=== PATIENT | female | born 1960 | race Caucasian/White ===

== ENCOUNTER 2020-12-10 08:00 | Emergency (ER) | payer BC ==
[2020-12-10 08:06] VITALS: TEMP 97.8
[2020-12-10] MEDS ORDERED: KETOROLAC 15 MG/ML 1 ML VIAL IVP STA (08:15)
[2020-12-10] MEDS ORDERED: ONDANSETRON 4 MG/2 ML VIAL IVP STA (08:15)
[2020-12-10] MEDS ORDERED: SODIUM CHLORIDE 0.9% 500 ML 500 ML IV STA (08:15)
--- NOTE | 2020-12-10 08:20 | ED ---
Abdominal Pain HPI - General Chief Complaint: Abdominal Pain Stated Complaint: LLQ Pain Time Seen by Provider: 12/10/20 08:08 Source: patient, RN notes reviewed Mode of arrival: ambulatory Limitations: no limitations - History of Present Illness Initial Comments: Patient is a 60-year-old female presented to the ED for left sided flank pain that started last night. Patient states that she was woken up in the middle the night feeling like she had a go to the bathroom, but was going the bathroom got no relief. Patient states she has generalized left sided flank pain feeling like she has to go the bathroom or stomach subside. Patient reports increased volume in bowel movements " has gone 10 times" today with nausea at this time. Patient denies any other symptoms of fever or chills, headache, cough, congestion or vomiting. Patient also expresses known history of kidney stone but reports this pain is different than his normal pain associated with that. - Related Data Previous Rx's Medication Instructions Recorded Ketorolac [Toradol] 10 mg PO Q8HR #15 tab 12/10/20 Ondansetron Odt [Zofran Odt] 4 mg PO Q8HR PRN #10 tab 12/10/20 Tamsulosin [Flomax] 0.4 mg PO DAILY #7 cap 12/10/20 Allergies Allergy/AdvReac Type Severity Reaction Status Date / Time No Known Allergies Allergy Verified 12/10/20 08:06 Review of Systems ROS Statement: Those systems with pertinent positive or pertinent negative responses have been documented in the HPI. ROS Other: All systems not noted in ROS Statement are negative. Past Medical History Past Medical History: Diabetes Mellitus, Hypertension History of Any Multi-Drug Resistant Organisms: None Reported Past Surgical History: Cholecystectomy Additional Past Surgical History / Comment(s): Thyroid Past Psychological History: No Psychological Hx Reported Smoking Status: Never smoker Past Alcohol Use History: Occasional Past Drug Use History: None Reported General Exam Limitations: no limitations General appearance: alert, in no apparent distress Respiratory exam: Present: normal lung sounds bilaterally. Absent: respiratory distress, wheezes, rales, rhonchi, stridor Cardiovascular Exam: Present: regular rate, normal rhythm, normal heart sounds. Absent: systolic murmur, diastolic murmur, rubs, gallop, clicks GI/Abdominal exam: Present: soft, tenderness (Left flank), hyperactive bowel so unds. Absent: distended, guarding, rebound, rigid Back exam: Present: normal inspection Neurological exam: Present: alert, oriented X3 Skin exam: Present: warm, dry, intact, normal color. Absent: rash Course Vital Signs 12/10/20 08:03 Temperature 97.8 F Pulse Rate 83 Respiratory 20 Rate Blood Pressure 128/73 O2 Sat by Pulse 100 Oximetry Medical Decision Making - Medical Decision Making CT shows evidence of a 3.8 mm stone in the ureter. Patient's pain is greatly improved as reviewed no significant findings. Patient discharged in stable condition temperature discussed. - Lab Data Result diagrams: 12/10/20 08:28 12/10/20 08:28 Lab Results 12/10/20 12/10/20 12/10/20 Range/Units 08:28 08:28 08:28 WBC 7.1 (3.8-10.6) k/uL RBC 5.20 (3.80-5.40) m/uL Hgb 16.2 H (11.4-16.0) gm/dL Hct 49.6 H (34.0-46.0) % MCV 95.4 (80.0-100.0) fL MCH 31.1 (25.0-35.0) pg MCHC 32.6 (31.0-37.0) g/dL RDW 12.8 (11.5-15.5) % Plt Count 269 (150-450) k/uL MPV 7.9 Neutrophils % 85 % Lymphocytes % 12 % Monocytes % 2 % Eosinophils % 0 % Basophils % 0 % Neutrophils # 6.1 (1.3-7.7) k/uL Lymphocytes # 0.8 L (1.0-4.8) k/uL Monocytes # 0.1 (0-1.0) k/uL Eosinophils # 0.0 (0-0.7) k/uL Basophils # 0.0 (0-0.2) k/uL Sodium 139 (137-145) mmol/L Potassium 4.3 (3.5-5.1) mmol/L Chloride 106 (98-107) mmol/L Carbon Dioxide 23 (22-30) mmol/L Anion Gap 10 mmol/L BUN 20 H (7-17) mg/dL Creatinine 0.63 (0.52-1.04) mg/dL Est GFR (CKD-EPI)AfAm >90 (>60 ml/min/1.73 sqM) Est GFR (CKD-EPI)NonAf >90 (>60 ml/min/1.73 sqM) Glucose 228 H (74-99) mg/dL Calcium 9.5 (8.4-10.2) mg/dL Total Bilirubin 0.7 (0.2-1.3) mg/dL AST 28 (14-36) U/L ALT 27 (4-34) U/L Alkaline Phosphatase 52 (38-126) U/L Total Protein 7.2 (6.3-8.2) g/dL Albumin 4.2 (3.5-5.0) g/dL Lipase 264 (23-300) U/L Urine Color Yellow Urine Appearance Clear (Clear) Urine pH 5.0 (5.0-8.0) Ur Specific [place] 1.032 (1.001-1.035) Urine Protein Negative (Negative) Urine Glucose (UA) 4+ H (Negative) Urine Ketones 2+ H (Negative) Urine Blood Large H (Negative) Urine Nitrite Negative (Negative) Urine Bilirubin Negative (Negative) Urine Urobilinogen <2.0 (<2.0) mg/dL Ur Leukocyte Esterase Negative (Negative) Urine RBC >182 H (0-5) /hpf Urine WBC <1 (0-5) /hpf Ur Squamous Epith Cells 1 (0-4) /hpf Urine Yeast (Budding) Few H (None) /hpf Disposition Clinical Impression: Left ureteral calculus Disposition: HOME SELF-CARE Condition: Stable Instructions (If sedation given, give patient instructions): Kidney Stones (ED) Additional Instructions: Please return to the Emergency Department if symptoms worsen or any other concerns. Prescriptions: Tamsulosin [Flomax] 0.4 mg PO DAILY #7 cap Ketorolac [Toradol] 10 mg PO Q8HR #15 tab Ondansetron Odt [Zofran Odt] 4 mg PO Q8HR PRN #10 tab PRN Reason: Nausea Is patient prescribed a controlled substance at d/c from ED?: No Referrals: Min Valentine MD [Primary Care Provider] - 1-2 days Time of Disposition: 10:13
[2020-12-10 08:50] LABS: Basophils % (A) 0 %; Eosinophils % (A) 0 %; HCT 49.6 % (34.0-46.0); HGB 16.2 gm/dL (11.4-16.0); Lymphocytes # (A) 0.8 k/uL (1.0-4.8); Lymphocytes % (A) 12 %; MCH 31.1 pg (25.0-35.0); MCHC 32.6 g/dL (31.0-37.0); MCV 95.4 fL (80.0-100.0); Mean Platelet Volume 7.9; Monocytes # (A) 0.1 k/uL (0-1.0); Monocytes % (A) 2 %; Neutrophils # (A) 6.1 k/uL (1.3-7.7); Neutrophils % (A) 85 %; Platelet Count 269 k/uL (150-450); RDW 12.8 % (11.5-15.5); WBC 7.1 k/uL (3.8-10.6)
[2020-12-10 09:03] LABS: Appearance,Urine Clear (Clear); Bilirubin,Urine Negative (Negative); Blood,Urine Large (Negative); Budding Yeast,Urine Few /hpf; Color,Urine Yellow; Glucose,Urine (UA) 4+ (Negative); Leukocyte Esterase,Urine Negative (Negative); Nitrite,Urine Negative (Negative); Protein,Urine Negative (Negative); RBC,Urine >182 /hpf (0-5); Specific Gravity,Urine 1.032 (1.001-1.035); Squamous Epithelial Cell,Urine 1 /hpf (0-4); Urobilinogen,Urine <2.0 mg/dL (<2.0); WBC,Urine <1 /hpf (0-5)
[2020-12-10 09:22] LABS: ALT 27 U/L (4-34); AST 28 U/L (14-36); African American GFR (CKD) >90 (>60 ml/min/1.73 sqM); Albumin 4.2 g/dL (3.5-5.0); Alkaline Phosphatase 52 U/L (38-126); Anion Gap 10 mmol/L; Blood Urea Nitrogen 20 mg/dL (7-17); Calcium 9.5 mg/dL (8.4-10.2); Carbon Dioxide 23 mmol/L (22-30); Chloride 106 mmol/L (98-107); Glucose 228 mg/dL (74-99); Lipase 264 U/L (23-300); Non-African American GFR(CKD) >90 (>60 ml/min/1.73 sqM); Potassium 4.3 mmol/L (3.5-5.1); Sodium 139 mmol/L (137-145); Total Bilirubin 0.7 mg/dL (0.2-1.3); Total Protein 7.2 g/dL (6.3-8.2)
[2020-12-10 09:37] LABS: Ketones,Urine 2+ (Negative)
--- NOTE | 2020-12-10 10:11 | CT ---
EXAMINATION TYPE: CT abdomen pelvis w con DATE OF EXAM: 12/10/2020 COMPARISON: None HISTORY: Left lower quadrant pain, increased bowel movements. CT DLP: 904.3 mGycm CONTRAST: CT scan of the abdomen and pelvis is performed without Oral Contrast and with IV Contrast, patient in jected with 100 mL of Isovue 300. FINDINGS: LUNG BASES-: No visible nodule. No infiltrate. LIVER/GB: The gallbladder surgically absent. Mild fatty hepatic infiltration seen. No space occupy ing hepatic lesion. Biliary tree is of normal caliber. PANCREAS: No inflammation. No distinct mass. SPLEEN: No splenic enlargement. No lesion seen. ADRENALS: No nodule. No thickening. KIDNEYS/BLADDER: 3.8 mm calculus proximal left ureter resulting in mild left-sided hydronephrosis. No nobstructing calculus upper pole left kidney measures 6.7 mm. Right kidney is free of nephrolithiasis or hydronephrosis. No distinct renal mass. Urinary bladder grossly unremarkable. BOWEL: Normal appendix. Normal bowel caliber. No inflammation. GENITAL ORGANS: No gross abnormality. LYMPH NODES: No greater than 1cm abdominal or pelvic lymph nodes are appreciated. AORTA: No significant abnormality. OSSEOUS STRUCTURES: No significant abnormality is seen. OTHER: No significant additional abnormality is seen. IMPRESSION: 1. 3.8 mm calculus proximal left ureter resulting in mild left-sided hydronephrosis.
[2020-12-10] MEDS ORDERED: ACET/COD 300 MG/30 MG STARTER PACK 6 TAB BTL PO STA (10:12)
[2020-12-10 11:06] VITALS: BP 122/82; PULSE 79; RESP 16
== END 2020-12-10 11:07 | disposition home or self-care (01) ==
LOC: EC 08:00
DX: N13.2 Hydronephrosis with renal and ureteral calculous obstruction (principal); E11.9 Type 2 diabetes mellitus without complications; I10 Essential (primary) hypertension
CPT/HCPCS: 36415; 80053; 83690; 85025; 81001; 74177; 96374; 96375; 99284; J2405; J1885; Q9967

== ENCOUNTER 2020-12-13 02:05 | Inpatient (IN) | payer BC ==
[2020-12-13] MEDS ORDERED: ONDANSETRON 4 MG/2 ML VIAL IVP STA (03:15)
[2020-12-13] MEDS ORDERED: SODIUM CHLORIDE 0.9% 500 ML 500 ML IV STA (03:16)
[2020-12-13] MEDS ORDERED: SODIUM CHLORIDE 0.9% 1,000 ML IV ONE (03:16)
[2020-12-13] MEDS ORDERED: MORPHINE SULFATE 4 MG/ML SYRINGE IV STA (03:16)
[2020-12-13] MEDS ORDERED: SODIUM CHLORIDE 0.9% 1,000 ML IV STA ×2 (03:16)
[2020-12-13] MEDS ORDERED: HYDROmorphone 1 MG/ML 1 ML SYRINGE IVP PRN (03:19)
[2020-12-13] MEDS ORDERED: HYDROmorphone 1 MG/ML 1 ML SYRINGE IVP STA (03:19)
--- NOTE | 2020-12-13 03:20 | ED ---
Recheck HPI - General Chief Complaint: Abdominal Pain Stated Complaint: Kidney Stones Time Seen by Provider: 12/13/20 02:16 Source: patient Mode of arrival: ambulatory - Related Data Previous Rx's Medication Instructions Recorded Ketorolac [Toradol] 10 mg PO Q8HR #15 tab 12/10/20 Ondansetron Odt [Zofran Odt] 4 mg PO Q8HR PRN #10 tab 12/10/20 Tamsulosin [Flomax] 0.4 mg PO DAILY #7 cap 12/10/20 Allergies Allergy/AdvReac Type Severity Reaction Status Date / Time No Known Allergies Allergy Verified 12/13/20 02:11 Review of Systems ROS Statement: Those systems with pertinent positive or pertinent negative responses have been documented in the HPI. ROS Other: All systems not noted in ROS Statement are negative. Past Medical History Past Medical History: Diabetes Mellitus, Hypertension History of Any Multi-Drug Resistant Organisms: None Reported Past Surgical History: Cholecystectomy Additional Past Surgical History / Comment(s): Thyroid Past Psychological History: No Psychological Hx Reported Smoking Status: Never smoker Past Alcohol Use History: Occasional Past Drug Use History: None Reported Course Vital Signs 12/13/20 02:07 Temperature 97.8 F Pulse Rate 67 Respiratory 19 Rate Blood Pressure 101/56 O2 Sat by Pulse 95 Oximetry Disposition Clinical Impression: Left ureteral calculus, Kidney stone, Intractable pain Disposition: ADMITTED IP TO THIS HOSP Condition: Good Is patient prescribed a controlled substance at d/c from ED?: No Referrals: Nonstaff,Physician [Primary Care Provider] - 1-2 days
[2020-12-13 03:33] LABS: Basophils % (A) 0 %; Eosinophils # (A) 0.1 k/uL (0-0.7); Eosinophils % (A) 1 %; HCT 43.1 % (34.0-46.0); HGB 14.1 gm/dL (11.4-16.0); Lymphocytes # (A) 1.3 k/uL (1.0-4.8); Lymphocytes % (A) 19 %; MCHC 32.6 g/dL (31.0-37.0); MCV 94.8 fL (80.0-100.0); Mean Platelet Volume 7.8; Monocytes # (A) 0.6 k/uL (0-1.0); Monocytes % (A) 8 %; Neutrophils # (A) 4.9 k/uL (1.3-7.7); Neutrophils % (A) 70 %; Platelet Count 227 k/uL (150-450); RBC 4.55 m/uL (3.80-5.40); RDW 12.6 % (11.5-15.5)
[2020-12-13 03:45] LABS: ALT 18 U/L (4-34); AST 19 U/L (14-36); African American GFR (CKD) >90 (>60 ml/min/1.73 sqM); Albumin 3.5 g/dL (3.5-5.0); Alkaline Phosphatase 45 U/L (38-126); Anion Gap 4 mmol/L; Blood Urea Nitrogen 15 mg/dL (7-17); Calcium 8.8 mg/dL (8.4-10.2); Carbon Dioxide 25 mmol/L (22-30); Chloride 104 mmol/L (98-107); Glucose 233 mg/dL (74-99); Magnesium 1.8 mg/dL (1.6-2.3); Non-African American GFR(CKD) 82 (>60 ml/min/1.73 sqM); Potassium 4.4 mmol/L (3.5-5.1); Sodium 133 mmol/L (137-145); Total Bilirubin 0.5 mg/dL (0.2-1.3); Total Protein 6.1 g/dL (6.3-8.2)
[2020-12-13 04:11] LABS: Appearance,Urine Cloudy (Clear); Bacteria,Urine Occasional /hpf; Bilirubin,Urine Negative (Negative); Blood,Urine Moderate (Negative); Color,Urine Light Yellow; Glucose,Urine (UA) 3+ (Negative); Hyaline Casts,Urine 6 /lpf (0-2); Ketones,Urine Negative (Negative); Leukocyte Esterase,Urine Moderate (Negative); Mucus,Urine Few /hpf; Nitrite,Urine Negative (Negative); PH, Urine 5.5 (5.0-8.0); Protein,Urine Negative (Negative); RBC,Urine 15 /hpf (0-5); Specific Gravity,Urine 1.011 (1.001-1.035); Squamous Epithelial Cell,Urine 6 /hpf (0-4); Urobilinogen,Urine <2.0 mg/dL (<2.0); WBC,Urine 20 /hpf (0-5)
[2020-12-13 04:12] LABS: INR 0.9 (<1.2); Prothrombin Time 9.4 sec (9.0-12.0)
[2020-12-13 04:28] LABS: Partial Thromboplastin Time 19.2 sec (22.0-30.0)
--- NOTE | 2020-12-13 07:17 | P.GSCN ---
History of Present Illness Consult date: 12/13/20 History of present illness: 10-year-old female who was admitted last night because of ureteral colic due to a proximal ureteral stone on the left. The problem began back Thursday when she had severe pain. She was transferred to [facility] where a computed tomogr aphy scan identified a about a 5 mm proximal ureteral stone on the left and a 7 mm upper pole stone. Her pain was under control and she was discharged back to [facility] for spontaneous passage. The pain returned last night. She went to [facility] where they repeated the CAT scan and identified the same situation. The stone did not move. She was told that this was a new stone but this is incorrect. I removed both CAT scans from 12/10 and 12/12 and the status is the same. She has a 5-6 mm proximal ureteral stone on the left and a 7 mm upper pole stone on the left. The patient at present is comfortable. She has never had a stone before. There's been no fever or chills. There is no elevated white count. There is no obvious infection. There is no family history of stones. She is diabetic. Review of Systems All systems: negative - Constitutional Denies fever, Denies weight loss - EENT Eyes: denies blurred vision Ears, nose, mouth and throat: Denies dysphagia - Cardiovascular Denies chest pain, Denies shortness of breath - Respiratory Denies cough, Denies 7 - Gastrointestinal Reports as per HPI - Genitourinary Genitourinary: Denies dysuria, Denies hematuria - Integumentary Denies rash, Denies unusual bruising - Neurological Denies headaches, Denies syncope - Hematologic/Lymphatic Denies easy bleeding, Denies easy bruising Past Medical History Past Medical History: Diabetes Mellitus, Hypertension, Thyroid Disorder History of Any Multi-Drug Resistant Organisms: None Reported Past Surgical History: Cholecystectomy Additional Past Surgical History / Comment(s): Thyroidectomy Past Anesthesia/Blood Transfusion Reactions: Previous Problems w/ Anesthesia, Postoperative Nausea & Vomiting (PONV) Past Psychological History: No Psychological Hx Reported Smoking Status: Never smoker Past Alcohol Use History: Occasional Past Drug Use History: None Reported Medications and Allergies Home Medications Medication Instructions Recorded Confirmed Type Ketorolac [Toradol] 10 mg PO Q8HR #15 tab 12/10/20 Rx Ondansetron Odt [Zofran Odt] 4 mg PO Q8HR PRN #10 tab 12/10/20 Rx Tamsulosin [Flomax] 0.4 mg PO DAILY #7 cap 12/10/20 Rx Allergies Allergy/AdvReac Type Severity Reaction Status Date / Time No Known Allergies Allergy Verified 12/13/20 02:11 Surgical - Exam Vital Signs Temp Pulse Resp BP Pulse Ox 97.8 F 67 19 101/56 95 12/13/20 02:07 12/13/20 02:07 12/13/20 02:07 12/13/20 02:07 12/13/20 02:07 - General well developed, well nourished, no distress - Eyes PERRL - ENT no hearing loss - Neck trachea midline - Respiratory normal expansion, normal respiratory effort - Cardiovascular Rhythm: regular - Abdomen Abdomen: soft, non tender - Neurologic normal sensation - Musculoskeletal normal posture - Psychiatric oriented to time, oriented to person, oriented to place, speech is normal, memory intact Results - Labs 12/13/20 03:22 12/13/20 03:22 Abnormal Lab Results - Last 24 Hours (Table) 12/13/20 12/13/20 12/13/20 Range/Units 03:22 03:22 03:22 APTT 19.2 L (22.0-30.0) sec Sodium 133 L (137-145) mmol/L Glucose 233 H (74-99) mg/dL Total Protein 6.1 L (6.3-8.2) g/dL Urine Appearance Cloudy H (Clear) Urine Glucose (UA) 3+ H (Negative) Urine Blood Moderate H (Negative) Ur Leukocyte Esterase Moderate H (Negative) Urine RBC 15 H (0-5) /hpf Urine WBC 20 H (0-5) /hpf Ur Squamous Epith Cells 6 H (0-4) /hpf Urine Bacteria Occasional H (None) /hpf Hyaline Casts 6 H (0-2) /lpf Urine Mucus Few H (None) /hpf Diabetes panel 12/13/20 Range/Units 03:22 Sodium 133 L (137-145) mmol/L Potassium 4.4 (3.5-5.1) mmol/L Chloride 104 (98-107) mmol/L Carbon Dioxide 25 (22-30) mmol/L BUN 15 (7-17) mg/dL Creatinine 0.80 (0.52-1.04) mg/dL Glucose 233 H (74-99) mg/dL Calcium 8.8 (8.4-10.2) mg/dL AST 19 (14-36) U/L ALT 18 (4-34) U/L Alkaline Phosphatase 45 (38-126) U/L Total Protein 6.1 L (6.3-8.2) g/dL Albumin 3.5 (3.5-5.0) g/dL Calcium panel 12/13/20 Range/Units 03:22 Calcium 8.8 (8.4-10.2) mg/dL Albumin 3.5 (3.5-5.0) g/dL Pituitary panel 12/13/20 Range/Units 03:22 Sodium 133 L (137-145) mmol/L Potassium 4.4 (3.5-5.1) mmol/L Chloride 104 (98-107) mmol/L Carbon Dioxide 25 (22-30) mmol/L BUN 15 (7-17) mg/dL Creatinine 0.80 (0.52-1.04) mg/dL Glucose 233 H (74-99) mg/dL Calcium 8.8 (8.4-10.2) mg/dL Adrenal panel 12/13/20 Range/Units 03:22 Sodium 133 L (137-145) mmol/L Potassium 4.4 (3.5-5.1) mmol/L Chloride 104 (98-107) mmol/L Carbon Dioxide 25 (22-30) mmol/L BUN 15 (7-17) mg/dL Creatinine 0.80 (0.52-1.04) mg/dL Glucose 233 H (74-99) mg/dL Calcium 8.8 (8.4-10.2) mg/dL Total Bilirubin 0.5 (0.2-1.3) mg/dL AST 19 (14-36) U/L ALT 18 (4-34) U/L Alkaline Phosphatase 45 (38-126) U/L Total Protein 6.1 L (6.3-8.2) g/dL Albumin 3.5 (3.5-5.0) g/dL - Imaging CT scan - abdomen: report reviewed, image reviewed CT scan - pelvis: report reviewed, image reviewed Assessment and Plan Assessment: Impression: Left ureteral calculus with colic. Left renal stone. Diabetes. Recommendations. Just at length all the treatment options including spontaneous passage shockwave lithotripsy ureteroscopy percutaneous nephrostolithotomy and open surgery. At present the patient is relatively comfortable and would like to see if the stone can move her she can tolerate any discomfort today. If so she'll be discharged home for spontaneous passage with potential shockwave lithotripsy in the future if she does not pass a stone. If her colic persists throughout the day then I would set her up for ureteroscopy tomorrow. She was told at [facility] that she had 2 stones in the ureter which she does not. This is the same situation with a proximal ureteral stone and left renal calculus. Time with Patient: Greater than 30
[2020-12-13] MEDS ORDERED: ONDANSETRON 4 MG/2 ML VIAL IVP PRN (08:25)
[2020-12-13] MEDS: TAMSULOSIN 0.4 MG CAP.ER.24H PO SCH (10:43)
[2020-12-13] MEDS ORDERED: atenoloL 50 MG TAB PO SCH (11:00)
[2020-12-13] MEDS ORDERED: amLODIPine 2.5 MG TAB PO SCH (11:00)
[2020-12-13] MEDS: LEVOTHYROXINE 125 MCG TAB PO SCH (11:27)
[2020-12-13 13:07] LABS: Glucose,Whole Blood 197 mg/dL (75-99)
[2020-12-13] MEDS: INSULIN ASPART (NovoLOG) 100 UNIT/ML VIAL SQ SCH ×3 (13:18→20:36)
[2020-12-13] MEDS: NON FORMULARY DRUG (Empagliflozin [Jardiance] 25 MG Tablet) PO SCH (13:38)
[2020-12-13] MEDS ORDERED: ACETAMINOPHEN TAB 325 MG TAB PO PRN (16:47)
[2020-12-13 17:42] LABS: Glucose,Whole Blood 122 mg/dL (75-99)
--- NOTE | 2020-12-13 17:58 | P.HPIM ---
History of Present Illness H&P Date: 12/13/20 Chief Complaint: Left abdominal pain This is a very pleasant 60-year-old patient who follows with . Chronic stable medical conditions include diabetes mellitus type 2, hypertension, hypothyroid. 4 days ago in the middle of night when patient went to the bathroom patient started developing increasing left abdominal pain. Symptoms slowly progressed. On the morning of December 10 patient presented to ER. Computed tomography scan of the abdomen showed a 3.8. The calculus in the proximal left ureter resulting in mild left-sided hydronephrosis. Nonobstructing calculus upper pole of left kidney 6.7 mm. At that tender was no fever or chills reported. Patient was discharged home on prescription of Toradol, Zofran and Flomax. Patient did not start Flomax yesterday and patient symptoms became worse. Increasing pain in his left flank. There was nausea and chills. Patient been done of the [place] [facility]. Pain had become rather significant. And the patient was transferred down here. Patient started on IV fluids and Flomax was added. Patient is able to walk in the hallway. is present. Currently no nausea vomiting. Review of systems: GEN.: Tired EYES: None HEENT: None NECK: None RESPIRATORY: None CARDIOVASCULAR: None GASTROINTESTINAL: As above GENITOURINARY: None MUSCULOSKELETAL: None LYMPHATICS: None HEMATOLOGICAL: None PSYCHIATRY: None NEUROLOGICAL: None Past medical history to include: Hypertension, diabetes, hypothyroid, kidney stones Social history: . Nonsmoker. Alcohol occasionally. Family history: Reviewed, noncontributory to presentation Physical examination: VITAL SIGNS: 97.5, 73, 18, 95/60, 95% room air GENERAL: [BMI 31, sitting on bed, awake not in distress. EYES: Pupils equal. Conjunctiva normal. HEENT: External appearance of nose and ears normal, oral cavity grossly normal. NECK: JVD not raised; masses not palpable. HEART: First and second heart sounds are normal; no edema. LUNGS: Respiratory rate normal; clear to auscultation. ABDOMEN: Soft, nontender, liver spleen not palpable, no masses palpable, mild left flank tenderness. PSYCH: Alert and oriented x3; mood and affect normal. NEUROLOGICAL: Cranial nerves grossly intact; no facial asymmetry, power and sensation grossly intact. LYMPHATICS: No lymph nodes palpable in the axilla and neck INVESTIGATIONS, reviewed in the clinical context: WBC 7 hemoglobin 14.1 platelets 227 sodium 133 potassium 4.4 BUN 15 creatinine 0.8 UA positive for glucose 3+ moderate blood, request trace, RBC 15 WBC 20 Coronavirus [PCR]: Not detected Computed tomography scan of the abdomen from December 10: Left ureter stone, left kidney stone see above, mild hydronephrosis Assessment and plan: -This is a patient with known kidney stones presented with increasing left flank pain at the last 4 days. Symptoms have been progressively been getting worse. Patient has stone in the left ureter with mild hydronephrosis. Infected diabetic urine but no fever or white count. Now patient complaining of chills. -Left ureter stone, causing mild left hydronephrosis Increase normal saline to 1 50 mL an hour. Flomax 0.4 mg daily -Mild left hydronephrosis from left ureter stone Follow clinically -Diabetes mellitus type 2 on oral hypoglycemic. Uncontrolled with hyperglycemia Follow Accu-Cheks with sliding scale insulin. Hold metformin. Continue with GERD is. -Essential hypertension Currently blood pressure running lower site. One of her antihypertensive. Follow blood pressure closely -Hypothyroid Synthroid 125 g daily -Acute UTI secondary to kidney stones IV ceftriaxone IV ceftriaxone. IV fluids. Flomax. Follow Accu-Cheks. Increase activities tolerated. Patient was seen by Dr. Gallego from urology. If no improvement and p atient will need intervention. Care was discussed with the patient has been out of the bedside. Questions answered. Subcu Lovenox Past Medical History Past Medical History: Diabetes Mellitus, Hypertension, Thyroid Disorder History of Any Multi-Drug Resistant Organisms: None Reported Past Surgical History: Cholecystectomy Additional Past Surgical History / Comment(s): Thyroidectomy Past Anesthesia/Blood Transfusion Reactions: Previous Problems w/ Anesthesia, Postoperative Nausea & Vomiting (PONV) Past Psychological History: No Psychological Hx Reported Smoking Status: Never smoker Past Alcohol Use History: Occasional Past Drug Use History: None Reported Medications and Allergies Home Medications Medication Instructions Recorded Confirmed Type Ondansetron Odt [Zofran Odt] 4 mg PO Q8HR PRN #10 tab 12/10/20 12/13/20 Rx Tamsulosin [Flomax] 0.4 mg PO DAILY #7 cap 12/10/20 12/13/20 Rx Atenolol [Tenormin] 50 mg PO DAILY 12/13/20 12/13/20 History Empagliflozin [Jardiance] 25 mg PO DAILY 12/13/20 12/13/20 History Levothyroxine Sodium [Synthroid] 125 mcg PO DAILY@0430 12/13/20 12/13/20 History amLODIPine [Norvasc] 2.5 mg PO DAILY 12/13/20 12/13/20 History metFORMIN HCL 1,000 mg PO AC-SUPPER 12/13/20 12/13/20 History metFORMIN HCL [Glucophage] 500 mg PO AC-BRKFST 12/13/20 12/13/20 History Allergies Allergy/AdvReac Type Severity Reaction Status Date / Time No Known Allergies Allergy Verified 12/13/20 10:19 Physical Exam Vitals: Vital Signs Temp Pulse Pulse Resp BP BP Pulse Ox 12/13/20 08:15 97.5 F L 73 18 95/60 95 12/13/20 05:16 98.2 F 68 16 109/69 99 12/13/20 04:47 97.7 F 77 18 114/56 97 12/13/20 02:07 97.8 F 67 19 101/56 95 Intake and Output 12/12/20 12/13/20 12/13/20 22:59 06:59 14:59 Intake Total 300 Output Total 200 Balance -200 300 Intake: Oral 300 Output: Urine 200 Other: Voiding Method Toilet Weight 74.3 kg Results CBC & Chem 7: 12/13/20 03:22 12/13/20 03:22 Labs: Abnormal Lab Results - Last 24 Hours (Table) 12/13/20 12/13/20 12/13/20 Range/Units 03:22 03:22 03:22 APTT 19.2 L (22.0-30.0) sec Sodium 133 L (137-145) mmol/L Glucose 233 H (74-99) mg/dL Total Protein 6.1 L (6.3-8.2) g/dL Urine Appearance Cloudy H (Clear) Urine Glucose (UA) 3+ H (Negative) Urine Blood Moderate H (Negative) Ur Leukocyte Esterase Moderate H (Negative) Urine RBC 15 H (0-5) /hpf Urine WBC 20 H (0-5) /hpf Ur Squamous Epith Cells 6 H (0-4) /hpf Urine Bacteria Occasional H (None) /hpf Hyaline Casts 6 H (0-2) /lpf Urine Mucus Few H (None) /hpf Microbiology - Last 24 Hours (Table) 12/13/20 03:22 Urine Culture - Preliminary Urine,Voided Thrombosis Risk Factor Assmnt - Choose All That Apply Each Factor Represents 1 point: Age 41-60 years, Obesity (BMI >25) Other Risk Factors: No Other congenital or acquired thrombophilia - If yes, enter type in comment: No Thrombosis Risk Factor Assessment Total Risk Factor Score: 2 Thrombosis Risk Factor Assessment Level: Low Risk
[2020-12-13] MEDS: SODIUM CHLORIDE 0.9% 1,000 ML IV SCH ×2 (18:26→20:39)
[2020-12-13 20:30] LABS: Glucose,Whole Blood 182 mg/dL (75-99)
[2020-12-14] MEDS: SODIUM CHLORIDE 0.9% 1,000 ML IV SCH ×2 (01:18→06:53)
[2020-12-14] MEDS: LEVOTHYROXINE 125 MCG TAB PO SCH (05:12)
[2020-12-14 06:34] LABS: Glucose,Whole Blood 126 mg/dL (75-99)
[2020-12-14] MEDS: INSULIN ASPART (NovoLOG) 100 UNIT/ML VIAL SQ SCH (06:35)
[2020-12-14 07:18] LABS: Basophils % (A) 1 %; Eosinophils # (A) 0.1 k/uL (0-0.7); Eosinophils % (A) 2 %; HCT 42.2 % (34.0-46.0); HGB 13.5 gm/dL (11.4-16.0); Lymphocytes # (A) 1.8 k/uL (1.0-4.8); Lymphocytes % (A) 42 %; MCH 30.5 pg (25.0-35.0); MCHC 31.9 g/dL (31.0-37.0); MCV 95.6 fL (80.0-100.0); Mean Platelet Volume 8.1; Monocytes # (A) 0.3 k/uL (0-1.0); Monocytes % (A) 7 %; Neutrophils # (A) 2.1 k/uL (1.3-7.7); Neutrophils % (A) 47 %; Platelet Count 228 k/uL (150-450); RBC 4.41 m/uL (3.80-5.40); RDW 12.6 % (11.5-15.5); WBC 4.4 k/uL (3.8-10.6)
[2020-12-14 07:21] LABS: African American GFR (CKD) >90 (>60 ml/min/1.73 sqM); Anion Gap 6 mmol/L; Blood Urea Nitrogen 10 mg/dL (7-17); Carbon Dioxide 24 mmol/L (22-30); Chloride 110 mmol/L (98-107); Glucose 143 mg/dL (74-99); Non-African American GFR(CKD) >90 (>60 ml/min/1.73 sqM); Potassium 3.9 mmol/L (3.5-5.1); Sodium 140 mmol/L (137-145)
[2020-12-14] MEDS: TAMSULOSIN 0.4 MG CAP.ER.24H PO SCH (07:45)
[2020-12-14] MEDS: NON FORMULARY DRUG (Empagliflozin [Jardiance] 25 MG Tablet) PO SCH (07:45)
[2020-12-14 07:52] VITALS: BP 125/77; PULSE 71; RESP 16; TEMP 98.2
--- NOTE | 2020-12-14 08:16 | P.PN ---
Subjective Progress Note Date: 12/14/20 The patient is in the hospital with a left ureteral stone with colic . Over the last 24 hours she has done much better with minimal discomfort. She has not passed a stone. With a lengthy discussion this morning about treatment options again. The plan is to let her go home with oral pain medicine. I did write a prescription for some [place]. She's been instructed that if she has no pain and does not pass a stone we'll tentatively plan for shockwave lithotripsy in about 10 days. If she passes the stone good news. If she has severe colic she is to contact us or return to the hospital at which time we'll consider ureteroscopy. I will contact her for arrangements for the potential shockwave lithotripsy Objective - Vital Signs Vital signs: Vital Signs Temp 98.2 F 12/14/20 07:45 Pulse 71 12/14/20 07:45 Resp 16 12/14/20 07:45 BP 125/77 12/14/20 07:45 Pulse Ox 97 12/14/20 07:45 Intake & Output 12/13/20 12/14/20 12/14/20 18:59 06:59 18:59 Intake Total 500 500 Output Total 200 600 Balance 300 -100 Intake: Oral 500 500 Output: Urine 200 600 Other: Voiding Method Toilet Toilet # Voids 1 - Labs CBC & Chem 7: 12/14/20 06:10 12/14/20 06:10 Labs: Abnormal Lab Results - Last 24 Hours (Table) 12/13/20 12/13/20 12/13/20 Range/Units 13:04 17:40 20:28 Chloride (98-107) mmol/L Glucose (74-99) mg/dL POC Glucose (mg/dL) 197 H 122 H 182 H (75-99) mg/dL 12/14/20 12/14/20 Range/Units 06:10 06:32 Chloride 110 H (98-107) mmol/L Glucose 143 H (74-99) mg/dL POC Glucose (mg/dL) 126 H (75-99) mg/dL Microbiology - Last 24 Hours (Table) 12/13/20 03:22 Urine Culture - Preliminary Urine,Voided
--- NOTE | 2020-12-14 13:54 | P.DS ---
Providers Date of admission: 12/13/20 03:16 Expected date of discharge: 12/14/20 Attending physician: John Guzman Consults: 12/13/20 03:16 Consult Physician Routine Consulting Provider: Shen Dickson Consult Reason/Comments: kidney stone Do you want consulting provider notified?: Yes Primary care physician: Physician Nonsta Hospital Course: Chief Complaint: Left abdominal pain This is a very pleasant 60-year-old patient who follows with . Chronic stable medical conditions include diabetes mellitus type 2, hypertension, hypothyroid. 4 days ago in the middle of night when patient went to the bathroom patient started developing increasing left abdominal pain. Symptoms slowly progressed. On the morning of December 10 patient presented to ER. Computed tomography scan of the abdomen showed a 3.8. The calculus in the proximal left ureter resulting in mild left-sided hydronephrosis. Nonobstructing calculus upper pole of left kidney 6.7 mm. At that tender was no fever or chills reported. Patient was discharged home on prescription of Toradol, Zofran and Flomax. Patient did not start Flomax yesterday and patient symptoms became worse. Increasing pain in his left flank. There was nausea and chills. Patient been done of the [facility]. Pain had become rather significant. And the patient was transferred down here. Patient started on IV fluids and Flomax was added. Patient is able to walk in the hallway. is present. Currently no nausea vomiting. Patient is given IV fluids. Flomax added. IV ceftriaxone. 12/14/2020: Up and about in the hallway. Pain much improved. Seen by Dr. Dickson. He sitting of the patient for an outpatient lithotripsy. She did leave a prescription for Burna. Discharge planning including use of narcotics sparingly was discussed with the patient has been. Questions answered. Increase water intake. Consultation: Dr. Dickson from urology Past medical history to include: Hypertension, diabetes, hypothyroid, kidney stones Social history: . Nonsmoker. Alcohol occasionally. Family history: Reviewed, noncontributory to presentation Physical examination: VITAL SIGNS: 98.2, 71, 16, 125/77, 97% room air GENERAL: Sitting up, comfortable EYES: Pupils equal. Conjunctiva normal. HEENT: External appearance of nose and ears normal, oral cavity grossly normal. NECK: JVD not raised; masses not palpable. HEART: First and second heart sounds are normal; no edema. LUNGS: Respiratory rate normal; clear to auscultation. ABDOMEN: Soft, nontender, liver spleen not palpable, no masses palpable, mild left flank tenderness. PSYCH: Alert and oriented x3; mood and affect normal. INVESTIGATIONS, reviewed in the clinical context: December 14: WBC 4.4 hemoglobin 13.5 platelets 228 potassium 3.9 creatinine 0.74 WBC 7 hemoglobin 14.1 platelets 227 sodium 133 potassium 4.4 BUN 15 creatinine 0.8 UA positive for glucose 3+ moderate blood, request trace, RBC 15 WBC 20 Coronavirus [PCR]: Not detected Computed tomography scan of the abdomen from December 10: Left ureter stone, left kidney stone see above, mild hydronephrosis Assessment and plan: -Left ureter stone, causing mild left hydronephrosis IV fluids. Flomax 0.4 mg daily -Mild left hydronephrosis from left ureter stone Follow clinically -Diabetes mellitus type 2 on oral hypoglycemic. Uncontrolled with hyperglycemia Follow Accu-Cheks with sliding scale insulin. metformin. -Essential hypertension Follow blood pressure closely -Hypothyroid Synthroid 125 g daily -Acute UTI secondary to kidney stones IV ceftriaxone. Discharged on Ceftin 500 mg twice a day for 10 tablets Disposition: Home. Outpatient lithotripsy Plan - Discharge Summary Discharge Rx Participant: Yes New Discharge Prescriptions: New Cefuroxime Axetil [Ceftin] 500 mg PO BID #10 tab Continue Tamsulosin [Flomax] 0.4 mg PO DAILY #7 cap metFORMIN HCL 1,000 mg PO AC-SUPPER amLODIPine [Norvasc] 2.5 mg PO DAILY Ondansetron Odt [Zofran ODT] 4 mg PO Q8HR PRN #10 tab PRN Reason: Nausea metFORMIN HCL [Glucophage] 500 mg PO AC-BRKFST Levothyroxine Sodium [Synthroid] 125 mcg PO DAILY@0430 Empagliflozin [Jardiance] 25 mg PO DAILY Discontinued Atenolol [Tenormin] 50 mg PO DAILY Discharge Medication List Ondansetron Odt [Zofran ODT] 4 mg PO Q8HR PRN #10 tab 12/10/20 [Rx] Tamsulosin [Flomax] 0.4 mg PO DAILY #7 cap 12/10/20 [Rx] Empagliflozin [Jardiance] 25 mg PO DAILY 12/13/20 [History] Levothyroxine Sodium [Synthroid] 125 mcg PO DAILY@0430 12/13/20 [History] amLODIPine [Norvasc] 2.5 mg PO DAILY 12/13/20 [History] metFORMIN HCL 1,000 mg PO AC-SUPPER 12/13/20 [History] metFORMIN HCL [Glucophage] 500 mg PO AC-BRKFST 12/13/20 [History] Cefuroxime Axetil [Ceftin] 500 mg PO BID #10 tab 12/14/20 [Rx] Follow up Appointment(s)/Referral(s): Nonstaff,Physician [Primary Care Provider] - 1-2 days Kaila Valentine MD [REFERRING] - 1 Week Shen Dickson MD [STAFF PHYSICIAN] - 2 Weeks (Follow up after procedure in December per Lashonda's office. ) Patient Instructions/Handouts: Hydrocodone/Acetaminophen (By mouth) Activity/Diet/Wound Care/Special Instructions: Take antibiotic and pain medicine as directed. Dr Dickson's office will call you with an appointment time. Call Dr dickson's office with any questions or concerns. Return to ER with any emergent needs. [facility] can be contacted at phone: fax: Discharge Disposition: HOME SELF-CARE
== END 2020-12-14 12:49 | disposition home or self-care (01) | DRG 694 ==
LOC: EC 02:05 → 6PED 03:16
PROVIDERS: ADMIT Hospitalist; ATTEND Hospitalist
DX: N20.2 Calculus of kidney with calculus of ureter (principal); E11.65 Type 2 diabetes mellitus with hyperglycemia; I10 Essential (primary) hypertension; N23 Unspecified renal colic; E89.0 Postprocedural hypothyroidism; Z20.822 Contact with and (suspected) exposure to COVID-19; Z79.84 Long term (current) use of oral hypoglycemic drugs; Z79.890 Hormone replacement therapy; Z79.899 Other long term (current) drug therapy; Z90.49 Acquired absence of other specified parts of digestive tract
CPT/HCPCS: 36415; 80048; 80053; 81001; 83605; 83735; 85025; 85610; 85730; 87086; 87635; 99284

== ENCOUNTER 2021-01-07 10:44 | Day surgery (SDC) | payer BC ==
[2021-01-04 12:51] VITALS: BMI 28.3
--- NOTE | 2021-01-05 21:03 | P.GSHP ---
History of Present Illness H&P Date: 01/05/21 60 yo female with a 7 mm llp stone who comes for eswl left. She recently had successful eswl left to a distal ureteral stone. Alternatives have been discussed. HEr most recent xray showed a llp stone of 7mm at [facility] - Constitutional Constitutional: Denies chills, Denies fever - EENT Eyes: denies blurred vision, denies pain Ears, nose, mouth and throat: Denies headache, Denies sore throat - Cardiovascular Cardiovascular: Denies chest pain, Denies shortness of breath - Respiratory Respiratory: Denies cough, Denies 7 - Gastrointestinal Gastrointestinal: Denies abdominal pain, Denies diarrhea, Denies nausea, Denies vomiting - Genitourinary (Female) Genitourinary: Denies dysuria, Denies hematuria - Genitourinary (Male) Genitourinary: Denies dysuria, Denies hematuria - Musculoskeletal Musculoskeletal: Denies myalgias - Integumentary Integumentary: Denies pruritus, Denies rash - Neurological Neurological: Denies numbness, Denies weakness - Psychiatric Psychiatric: Denies anxiety, Denies depression - Endocrine Endocrine: Denies fatigue, Denies weight change Past Medical History Past Medical History: Diabetes Mellitus, Hypertension Additional Past Medical History / Comment(s): kidney stones, fatty liver, on A/B for UTI History of Any Multi-Drug Resistant Organisms: None Reported Past Surgical History: Cholecystectomy Additional Past Surgical History / Comment(s): Thyroidectomy, exp. laparotomy, lithotripsy last week @[facility] Past Anesthesia/Blood Transfusion Reactions: Previous Problems w/ Anesthesia, Motion Sickness, Postoperative Nausea & Vomiting (PONV) Additional Past Anesthesia/Blood Transfusion Reaction / Comment(s): woke up during a surgery years ago Smoking Status: Never smoker Medications and Allergies Home Medications Medication Instructions Recorded Confirmed Type Ondansetron Odt [Zofran ODT] 4 mg PO Q8HR PRN #10 tab 12/10/20 01/04/21 Rx Empagliflozin [Jardiance] 25 mg PO DAILY 12/13/20 01/04/21 History Levothyroxine Sodium [Synthroid] 125 mcg PO DAILY@0430 12/13/20 01/04/21 History amLODIPine [Norvasc] 2.5 mg PO DAILY 12/13/20 01/04/21 History metFORMIN HCL 1,000 mg PO AC-SUPPER 12/13/20 01/04/21 History metFORMIN HCL [Glucophage] 500 mg PO AC-BRKFST 12/13/20 01/04/21 History Acetaminophen-Codeine 300-30mg 1 - 2 tab PO Q4-6H PRN 01/04/21 01/04/21 History [Tylenol w/codeine #3] Atenolol [Tenormin] 50 mg PO HS 01/04/21 01/04/21 History Cephalexin [Keflex] 500 mg PO Q8HR 01/04/21 01/04/21 History HYDROcodone/APAP 5-325MG [[place] 1 tab PO Q6HR PRN 01/04/21 01/04/21 History 5-325] Allergies Allergy/AdvReac Type Severity Reaction Status Date / Time No Known Allergies Allergy Verified 01/04/21 12:51 Surgical - Exam - General well developed, well nourished, no distress - Eyes PERRL - ENT no hearing loss - Neck no masses - Respiratory normal expansion, normal respiratory effort - Cardiovascular Rhythm: regular - Abdomen Abdomen: soft, non tender - Integumentary no rash - Neurologic normal sensation - Musculoskeletal normal gait, normal posture - Psychiatric oriented to time, oriented to person, oriented to place, speech is normal, memory intact Results - Imaging Abdominal x-ray: report reviewed, image reviewed CT scan - abdomen: report reviewed, image reviewed CT scan - pelvis: report reviewed, image reviewed Assessment and Plan Assessment: Impression: 7mm llp renal stone plan": eswl left
[~2021-01-07 10:44] MED LIST: LACTATED RINGERS 1,000 ML IV SCH
--- NOTE | 2021-01-07 10:59 | XR ---
EXAMINATION TYPE: XR KUB DATE OF EXAM: 01/07/2021 COMPARISON: NONE HISTORY: Preop TECHNIQUE: One view abdominal series FINDINGS: The osseous structures are intact. The bowel gas pattern is nonspecific. There is a vague 4 mm calci fication adjacent to the transverse processes of L3 on the left. Surgical clips in the pelvis. Arthro cesar of the hips. IMPRESSION: 1. Suspect lower pole left renal calculus measuring approximately 4 mm.
[2021-01-07] MEDS ORDERED: LIDOCAINE 1% (10MG/ML) FOR IV START INTRADERMA ONE (11:14)
[2021-01-07 11:21] VITALS: TEMP 97.1
[2021-01-07 11:28] LABS: Glucose,Whole Blood 109 mg/dL (75-99)
[2021-01-07] MEDS ORDERED: fentaNYL (PF) 50 MCG/ML 2 ML AMP ONE (11:29)
[2021-01-07] MEDS ORDERED: PROPOFOL 10 MG/ML 20 ML VIAL IV ONE (11:29)
[2021-01-07] MEDS ORDERED: LIDOCAINE 1% INJ 10MG/ML (20 ML MDV) ONE (11:29)
[2021-01-07] MEDS ORDERED: MIDAZOLAM 2 MG/2 ML VIAL ONE (11:29)
[2021-01-07] MEDS ORDERED: KETAMINE 10 MG/ML 20 ML VIAL ONE (11:29)
--- NOTE | 2021-01-07 12:05 | P.OP ---
Date of Procedure: 01/07/21 Preoperative Diagnosis: Left renal calculus Postoperative Diagnosis: Same Procedure(s) Performed: Left extracorporal shockwave lithotripsy (ESWL) Anesthesia: MAC Surgeon: Dann Liao Estimated Blood Loss (ml): 0 IV fluids (ml): 350 Pathology: none sent Condition: stable Disposition: PACU Indications for Procedure: The patient is a 60-year-old white female who recently underwent successful ESWL to treat a left distal ureteral calculus. She also has a 7 mm left lower pole renal calculus for which she has elected to undergo ESWL. Operative Findings: Excellent fragmentation of left lower pole renal calculus. Description of Procedure: The patient was taken to the operating room and placed on the [employer] Delta II lithotripter in the supine position. The calculus was seen on biplanar fluoroscopy. Once the patient was properly positioned and sedated, lithotripsy was performed. The energy level was gradually increased per protocol, to an energy level of 5. After 200 shocks were administered, a 2 minute pause was instituted per protocol. A total of 2000 shocks were given at a rate of 80 shocks per minute. Fluoroscopy was utilized at a minimum to ensure proper positioning and determine the treatment status. The calculus changed in appearance, consistent with fragmentation. The patient tolerated the procedure well was taken to the recovery room in stable condition. Instructions were given to strain the urine, and the patient will follow-up within one week.
[2021-01-07] MEDS ORDERED: Acetaminophen-Codeine 300-30mg TAB PO ONE (12:22)
[2021-01-07] MEDS ORDERED: Acetaminophen-Codeine 300-30mg TAB ONE (12:24)
[2021-01-07 12:28] VITALS: RESP 16
[2021-01-07 12:58] VITALS: BP 128/65; PULSE 68
== END 2021-01-07 13:12 | disposition home or self-care (01) ==
LOC: ORWHC2ENDO 10:44
PROVIDERS: ATTEND Urology
DX: N20.2 Calculus of kidney with calculus of ureter (principal); E11.9 Type 2 diabetes mellitus without complications; I10 Essential (primary) hypertension; K76.0 Fatty (change of) liver, not elsewhere classified; Z79.84 Long term (current) use of oral hypoglycemic drugs; Z87.440 Personal history of urinary (tract) infections; Z90.49 Acquired absence of other specified parts of digestive tract
CPT/HCPCS: 50590; 74018; J2250; J2001; J3010; J2704

== ENCOUNTER 2021-03-22 07:01 | Emergency (ER) | payer BC ==
--- NOTE | 2021-03-22 07:47 | ED ---
GI Bleed HPI - General Chief complaint: GI Bleed Stated complaint: GI Bleed Time Seen by Provider: 03/22/21 07:16 Source: patient Mode of arrival: ambulatory Limitations: no limitations - History of Present Illness Initial comments: Patient is a 60-year-old female with a PMH of hemorrhoids who presents to the ED with the chief complaint of rectal bleeding. Patient reports she had 3 episodes of rectal bleeding where the toilet water was red. This is never happened before. First episode was 15 hours ago. Patient does note some intermittent dizziness and palpitations with the bleeding. Patient also mentions that she has two kidney stones refractory to lithotripsy 2. She notes that she spoke with urologist Dr. Gallego this morning with concern that the stones were causing rectal bleeding and was referred here. Patient reports right flank pain, 1/10 severity. Patient has concern for blood in the urine as well. She denies fever, chills, chest pain, shortness of breath, abdominal pain, diahrrea and dysuria. - Related Data Home Medications Medication Instructions Recorded Confirmed Empagliflozin [Jardiance] 25 mg PO DAILY 12/13/20 01/07/21 Levothyroxine Sodium [Synthroid] 125 mcg PO DAILY@0430 12/13/20 01/07/21 amLODIPine [Norvasc] 2.5 mg PO DAILY 12/13/20 01/07/21 metFORMIN HCL 1,000 mg PO AC-SUPPER 12/13/20 01/07/21 metFORMIN HCL [Glucophage] 500 mg PO AC-BRKFST 12/13/20 01/07/21 Atenolol [Tenormin] 50 mg PO HS 01/04/21 01/07/21 Multivitamins, Thera [Multivitamin 1 tab PO AC-LUNCH 03/22/21 03/22/21 (formulary)] Niacin 500 mg PO AC-LUNCH 03/22/21 03/22/21 Tamsulosin HCl [Flomax] 0.4 mg PO DAILY 03/22/21 03/22/21 Allergies Allergy/AdvReac Type Severity Reaction Status Date / Time No Known Allergies Allergy Verified 03/22/21 07:56 Review of Systems ROS Statement: Those systems with pertinent positive or pertinent negative responses have been documented in the HPI. ROS Other: All systems not noted in ROS Statement are negative. Past Medical History Past Medical History: Diabetes Mellitus, Hypertension Additional Past Medical History / Comment(s): kidney stones, fatty liver, on A/B for UTI History of Any Multi-Drug Resistant Organisms: None Reported Past Surgical History: Cholecystectomy Additional Past Surgical History / Comment(s): Thyroidectomy, exp. laparotomy, lithotripsy last week @[facility] Past Anesthesia/Blood Transfusion Reactions: Previous Problems w/ Anesthesia, Motion Sickness, Postoperative Nausea & Vomiting (PONV) Additional Past Anesthesia/Blood Transfusion Reaction / Comment(s): woke up during a surgery years ago Past Psychological History: No Psychological Hx Reported Smoking Status: Never smoker Past Alcohol Use History: None Reported Past Drug Use History: None Reported General Exam Limitations: no limitations General appearance: alert, in no apparent distress Head exam: Present: atraumatic, normocephalic, normal inspection Eye exam: Present: normal appearance, PERRL, EOMI. Absent: scleral icterus, conjunctival injection, periorbital swelling Respiratory exam: Present: normal lung sounds bilaterally. Absent: respiratory distress, wheezes, rales, rhonchi, stridor Cardiovascular Exam: Present: regular rate, normal rhythm, normal heart sounds. Absent: systolic murmur, diastolic murmur, rubs, gallop, clicks GI/Abdominal exam: Present: soft, normal bowel sounds. Absent: distended, tenderness, guarding, rebound, rigid Rectal exam: Present: normal rectal tone, hemorrhoids (external ) Extremities exam: Present: normal capillary refill Back exam: Present: normal inspection, full ROM. Absent: tenderness, CVA tenderness (R), CVA tenderness (L), rash noted Neurological exam: Present: alert, oriented X3, CN II-XII intact Psychiatric exam: Present: normal affect, normal mood Skin exam: Present: warm, dry, intact, normal color. Absent: rash Course Vital Signs 03/22/21 07:05 Temperature 98.1 F Pulse Rate 83 Respiratory 22 Rate Blood Pressure 125/67 O2 Sat by Pulse 99 Oximetry Medical Decision Making - Medical Decision Making This is a 60-year-old female with a past medical history of hemorrhoids who presents with chief complaint of rectal bleeding. Patient is hemodynamically stable. On physical exam there is no active rectal bleeding. EKG reveals normal sinus rhythm. CBC is unremarkable. Stool occult positive. CBC within normal limits with hemoglobin at 16. Urinalysis reveals trace ketones, 4+ glucose, moderate blood. Results discussed with the patient. Patient instructed to follow-up with GI specialist at earliest available appointment for further evaluation and treatment. Patient notes she has new primary care provider Dr. Massey who is monitoring and treating her diabetes. She also mentions that she has been speaking to her urologist Dr. Gallego regarding her pre-existing kidney stones Return parameters discussed. Patient instructed to return to the ED if she experiences new, concerning, or worsening symptoms. - Lab Data Result diagrams: 03/22/21 07:48 03/22/21 07:48 Lab Results 03/22/21 03/22/21 03/22/21 Range/Units 07:48 07:48 07:48 WBC 5.9 (3.8-10.6) k/uL RBC 5.26 (3.80-5.40) m/uL Hgb 16.0 (11.4-16.0) gm/dL Hct 49.2 H (34.0-46.0) % MCV 93.5 (80.0-100.0) fL MCH 30.3 (25.0-35.0) pg MCHC 32.4 (31.0-37.0) g/dL RDW 12.4 (11.5-15.5) % Plt Count 239 (150-450) k/uL MPV 7.7 Neutrophils % 73 % Lymphocytes % 16 % Monocytes % 8 % Eosinophils % 2 % Basophils % 0 % Neutrophils # 4.3 (1.3-7.7) k/uL Lymphocytes # 0.9 L (1.0-4.8) k/uL Monocytes # 0.5 (0-1.0) k/uL Eosinophils # 0.1 (0-0.7) k/uL Basophils # 0.0 (0-0.2) k/uL Sodium 135 L (137-145) mmol/L Potassium 4.6 (3.5-5.1) mmol/L Chloride 106 (98-107) mmol/L Carbon Dioxide 23 (22-30) mmol/L Anion Gap 6 mmol/L BUN 13 (7-17) mg/dL Creatinine 0.85 (0.52-1.04) mg/dL Est GFR (CKD-EPI)AfAm 88 (>60 ml/min/1.73 sqM) Est GFR (CKD-EPI)NonAf 76 (>60 ml/min/1.73 sqM) Glucose 179 H (74-99) mg/dL Calcium 9.4 (8.4-10.2) mg/dL Total Bilirubin 1.0 (0.2-1.3) mg/dL AST 32 (14-36) U/L ALT 26 (4-34) U/L Alkaline Phosphatase 63 (38-126) U/L Total Protein 7.1 (6.3-8.2) g/dL Albumin 4.1 (3.5-5.0) g/dL Urine Color Urine Appearance (Clear) Urine pH (5.0-8.0) Ur Specific [place] (1.001-1.035) Urine Protein (Negative) Urine Glucose (UA) (Negative) Urine Ketones (Negative) Urine Blood (Negative) Urine Nitrite (Negative) Urine Bilirubin (Negative) Urine Urobilinogen (<2.0) mg/dL Ur Leukocyte Esterase (Negative) Urine RBC (0-5) /hpf Urine WBC (0-5) /hpf Ur Squamous Epith Cells (0-4) /hpf Urine Bacteria (None) /hpf Urine Mucus (None) /hpf Stool Occult Blood Positive H (Negative) 03/22/21 Range/Units 08:05 WBC (3.8-10.6) k/uL RBC (3.80-5.40) m/uL Hgb (11.4-16.0) gm/dL Hct (34.0-46.0) % MCV (80.0-100.0) fL MCH (25.0-35.0) pg MCHC (31.0-37.0) g/dL RDW (11.5-15.5) % Plt Count (150-450) k/uL MPV Neutrophils % % Lymphocytes % % Monocytes % % Eosinophils % % Basophils % % Neutrophils # (1.3-7.7) k/uL Lymphocytes # (1.0-4.8) k/uL Monocytes # (0-1.0) k/uL Eosinophils # (0-0.7) k/uL Basophils # (0-0.2) k/uL Sodium (137-145) mmol/L Potassium (3.5-5.1) mmol/L Chloride (98-107) mmol/L Carbon Dioxide (22-30) mmol/L Anion Gap mmol/L BUN (7-17) mg/dL Creatinine (0.52-1.04) mg/dL Est GFR (CKD-EPI)AfAm (>60 ml/min/1.73 sqM) Est GFR (CKD-EPI)NonAf (>60 ml/min/1.73 sqM) Glucose (74-99) mg/dL Calcium (8.4-10.2) mg/dL Total Bilirubin (0.2-1.3) mg/dL AST (14-36) U/L ALT (4-34) U/L Alkaline Phosphatase (38-126) U/L Total Protein (6.3-8.2) g/dL Albumin (3.5-5.0) g/dL Urine Color Light Yellow Urine Appearance Cloudy H (Clear) Urine pH 5.0 (5.0-8.0) Ur Specific [place] 1.023 (1.001-1.035) Urine Protein Negative (Negative) Urine Glucose (UA) 4+ H (Negative) Urine Ketones Trace H (Negative) Urine Blood Moderate H (Negative) Urine Nitrite Negative (Negative) Urine Bilirubin Negative (Negative) Urine Urobilinogen <2.0 (<2.0) mg/dL Ur Leukocyte Esterase Small H (Negative) Urine RBC 1 (0-5) /hpf Urine WBC 11 H (0-5) /hpf Ur Squamous Epith Cells 5 H (0-4) /hpf Urine Bacteria Rare H (None) /hpf Urine Mucus Rare H (None) /hpf Stool Occult Blood (Negative) - EKG Data EKG Comments: EKG taken at 7:36 Normal sinus rhythm Possible lateral infarct, age undetermined Ventricular rate 74 VT interval 162 QRS duration 82 QT/QTC 382/424 Disposition Clinical Impression: Melena Disposition: HOME SELF-CARE Condition: Good Additional Instructions: Schedule an appointment with GI specialist at earliest availability. Follow-up with primary care for diabetes evaluation and management in 1-2 days. Follow-up with urologist for kidney stone evaluation and treatment. Return to the ED expe rience new, concerning, or worsening symptoms. Is patient prescribed a controlled substance at d/c from ED?: No Referrals: Chelle Massey MD [Primary Care Provider] - 1-2 days Iwona Flores MD [STAFF PHYSICIAN] - 1-2 days Time of Disposition: 08:59
[2021-03-22 08:06] LABS: Basophils % (A) 0 %; Eosinophils # (A) 0.1 k/uL (0-0.7); Eosinophils % (A) 2 %; HCT 49.2 % (34.0-46.0); Lymphocytes # (A) 0.9 k/uL (1.0-4.8); Lymphocytes % (A) 16 %; MCH 30.3 pg (25.0-35.0); MCHC 32.4 g/dL (31.0-37.0); MCV 93.5 fL (80.0-100.0); Mean Platelet Volume 7.7; Monocytes # (A) 0.5 k/uL (0-1.0); Monocytes % (A) 8 %; Neutrophils # (A) 4.3 k/uL (1.3-7.7); Neutrophils % (A) 73 %; Platelet Count 239 k/uL (150-450); RBC 5.26 m/uL (3.80-5.40); RDW 12.4 % (11.5-15.5); WBC 5.9 k/uL (3.8-10.6)
[2021-03-22 08:23] LABS: Albumin 4.1 g/dL (3.5-5.0); Calcium 9.4 mg/dL (8.4-10.2); Total Protein 7.1 g/dL (6.3-8.2)
[2021-03-22 08:27] LABS: Potassium 4.6 mmol/L (3.5-5.1)
[2021-03-22 08:44] LABS: Appearance,Urine Cloudy (Clear); Bacteria,Urine Rare /hpf; Bilirubin,Urine Negative (Negative); Blood,Urine Moderate (Negative); Color,Urine Light Yellow; Glucose,Urine (UA) 4+ (Negative); Ketones,Urine Trace (Negative); Leukocyte Esterase,Urine Small (Negative); Mucus,Urine Rare /hpf; Nitrite,Urine Negative (Negative); Protein,Urine Negative (Negative); RBC,Urine 1 /hpf (0-5); Specific Gravity,Urine 1.023 (1.001-1.035); Squamous Epithelial Cell,Urine 5 /hpf (0-4); Urobilinogen,Urine <2.0 mg/dL (<2.0); WBC,Urine 11 /hpf (0-5)
[2021-03-22 09:18] VITALS: BP 110/65; PULSE 80; RESP 18; TEMP 97.1
== END 2021-03-22 09:19 | disposition home or self-care (01) ==
LOC: EC 07:01
DX: K92.1 Melena (principal); E11.9 Type 2 diabetes mellitus without complications; I10 Essential (primary) hypertension; Z79.84 Long term (current) use of oral hypoglycemic drugs; Z87.442 Personal history of urinary calculi; Z87.440 Personal history of urinary (tract) infections; Z90.49 Acquired absence of other specified parts of digestive tract
CPT/HCPCS: 36415; 80053; 81001; 82272; 85025; 87086; 93005; 99283

== ENCOUNTER → 2021-04-10 | Outpatient (CLI) | payer BC ==
--- NOTE | 2021-04-10 10:01 | US ---
EXAMINATION TYPE: US abdomen limited DATE OF EXAM: 04/10/2021 COMPARISON: None CLINICAL HISTORY: Acute pancreatitis w/o infection K85.90. GB removed. EXAM MEASUREMENTS: Liver Length: 14.1 cm CBD: 0.5 cm Right Kidney: 10.0 x 5.0 x 4.4 cm Pancreas: wnl Liver: wnl Gallbladder: Surgically absent Evidence for sonographic Ramirez's sign: neg CBD: wnl Right Kidney: No hydronephrosis or masses seen IMPRESSION: No significant abnormality seen.
== END | disposition home or self-care (01) ==
LOC: RADUSWWP 09:33
PROVIDERS: ATTEND Family Medicine
DX: K85.90 Acute pancreatitis without necrosis or infection, unspecified (principal); Z90.49 Acquired absence of other specified parts of digestive tract
CPT/HCPCS: 76705

== ENCOUNTER → 2021-04-18 | Outpatient (CLI) | payer BC ==
--- NOTE | 2021-04-19 01:27 | CT ---
EXAMINATION TYPE: CT abdomen pelvis w con DATE OF EXAM: 04/18/2021 COMPARISON: CT dated 12/10/2020 HISTORY: Diverticulitis. Elevated pancreatic enzymes, constipation. Hx Laxmi. CT DLP: 678.30 mGycm Automated exposure control for dose reduction was used. TECHNIQUE: Helical acquisition of images was performed from the lung bases through the pelvis. CONTRAST: Performed with Oral Contrast and with IV Contrast, patient injected with 100 mL of Isovue 300. FINDINGS: No definite hepatic focal lesion. Previous cholecystectomy. Dilated CBD measuring up to 9 mm, likely related to postcholecystectomy status, grossly stable compared to the previous CT scan. Subtle hyperd ensities seen within the CBD, possibly artifactual. Recommend precautionary correlation with bilirubi n level. Unremarkable spleen, pancreas, adrenals, kidneys and abdominal aorta. Grossly unremarkable urinary bl adder. Suspected 17 mm right uterine fibroid, please correlate with pelvic ultrasound results. Left t ubal ligation clip with a second displaced one seen posteriorly along the left lateral aspect of the rectum. No gross adnexal mass. Unremarkable stomach, duodenum and small bowel. Significant fecal loading of t he colon suggestive of constipation. Normal appendix. No suspicious lymphadenopathy or sizable ascite s. Unremarkable lung bases. No aggressive bone lesion. IMPRESSION: 1. Questionable subtle hyperdensities within the CBD, possibly artifactual, please correlate with radha irubin level. 2. Suspected 17 mm right uterine fibroid, please correlate with pelvic ultrasound results. Other inci dental findings as described above.
== END | disposition home or self-care (01) ==
LOC: RADCTMAIN 17:03
PROVIDERS: ATTEND Internal Medicine Geriatric Medicine
DX: K57.92 Diverticulitis of intestine, part unspecified, without perforation or abscess without bleeding (principal)
CPT/HCPCS: 74177; Q9967

== ENCOUNTER → 2021-05-07 | Outpatient (CLI) | payer BC ==
--- NOTE | 2021-05-07 12:30 | NM ---
EXAMINATION TYPE: NM gastric emptying static DATE OF EXAM: 05/07/2021 COMPARISON: NONE HISTORY: Pain Following administration of 1.8 mCi Tc 99m Sulfur Colloid with 4oz eggs, Two toast with jelly and 8oz water., projection images of the abdomen were obtained 10 minutes post ingestion. Patient Emptying Values 1 Hour 25 % 2 Hours 59 % 3 Hours 79 % 4 Hours 91 % Gastroesophagel reflux: None IMPRESSION: 1. Normal gastric emptying Gastric emptying normal percentage values: 30 minutes: <70% of retention (> 30% emptying) suggests abnormally fast emptying. 60 minutes: <90% retention (>10% emptying) is normal; less than 30% retention (>70% emptying) suggest s abnormally rapid empying. 90 minutes: <65% retention (> 35% emptying) is normal. 120 minutes: <60% retention (> 40% emptying) is normal. 180 minutes: <30% retention (> 70% emptying) is normal. Gastric emptying T-1/2: Solid: The normal range is 60-105 minutes Liquid only: Normal range is 10-45 minutes. Liquid only-children: At 60 minutes, normal range is 44-58 % . Liquid only-infants: At 60 minutes, normal range is 32-64 %. Additional references: Gastric Emptying Scintigraphy [email or web address]://[email or web address]
== END | disposition home or self-care (01) ==
LOC: RADNMMAIN 06:57
PROVIDERS: ATTEND Family Medicine
DX: R10.10 Upper abdominal pain, unspecified (principal)
CPT/HCPCS: 78264; A9541

== ENCOUNTER → 2023-03-02 | Outpatient (CLI) | payer BC ==
--- NOTE | 2023-03-02 11:05 | XR ---
EXAMINATION TYPE: XR KUB DATE OF EXAM: 03/02/2023 Comparison: 01/07/2021 Clinical History: 62-year-old female N20.0 CALCULUS OF KIDNEY N20.1 CALCULUS OF URETER Findings: Moderate to large stool burden. Cholecystectomy clips. A couple surgical clips in the left side of th e pelvis also redemonstrated. Right-sided pelvic phlebolith. Suspicious calculus not clearly apparent radiographic vein. No dilated small bowel. Supine imaging limited for assessment of free air. Impression: Moderate to large stool burden, possible constipation. Clinically correlate. Nonobstructive bowel gas pattern. Right-sided pelvic phleboliths.
== END | disposition home or self-care (01) ==
LOC: RADXRMAIN 09:58
PROVIDERS: ATTEND Urology
DX: N20.2 Calculus of kidney with calculus of ureter (principal); R19.5 Other fecal abnormalities; I87.8 Other specified disorders of veins
CPT/HCPCS: 74018

== ENCOUNTER → 2023-05-08 | Day surgery (SDC) | payer BC ==
[2023-05-07 10:00] VITALS: BMI 28.3
[~2023-05-08] MED LIST changes: -LACTATED RINGERS 1,000 ML IV SCH; +LIDOCAINE 1% INJ 10MG/ML (20 ML MDV) ONE; +PROPOFOL 10 MG/ML 20 ML VIAL IV ONE
[2023-05-08 10:31] VITALS: TEMP 97.4
[2023-05-08] MEDS: LACTATED RINGERS 1,000 ML IV SCH (10:43)
[2023-05-08 10:48] LABS: Glucose,Whole Blood 97 mg/dL (70-110)
--- NOTE | 2023-05-08 11:21 | P.PCN ---
Date of Procedure: 05/08/23 Procedure(s) Performed: BRIEF HISTORY: Patient is a 62-year-old pleasant white female scheduled for an elective colonoscopy as a part of evaluation of intermittent rectal bleeding for the last 6 months duration. She has history of chronic constipation. PROCEDURE PERFORMED: Colonoscopy. PREOPERATIVE DIAGNOSIS: Rectal bleeding. IV sedation per Anesthesia. PROCEDURE: After informed consent was obtained, the patient, was brought into the endoscopy unit. IV sedation was administered by Anesthesia under continuous monitoring. Digital rectal examination was normal. Initially the Olympus CF-160 flexible video colonoscope was then inserted in the rectum, gradually advanced into the cecum without any difficulty. Careful examination was performed as the scope was gradually being withdrawn. Ileocecal valve and the appendiceal orifice were visualized and appeared normal. Prep was excellent. Mucosa of the cecum, ascending colon, transverse colon, descending colon, sigmoid colon, and rectum appeared normal. Retroflexion was performed in the rectum and grade 2 internal hemorrhoids were seen. The patient tolerated the procedure well. IMPRESSION: Normal-appearing colon from rectum to cecum with no evidence of colorectal neoplasia Grade 2 internal hemorrhoids. RECOMMENDATIONS: Findings of this examination were discussed with the patient as well as her family. She was advised to start MiraLAX 1 scoop daily and continue with a high-fiber diet. Recommended colonoscopy in 10 years.
[2023-05-08 11:40] LABS: Glucose,Whole Blood 92 mg/dL (70-110)
[2023-05-08 11:54] VITALS: BP 109/71; PULSE 77; RESP 16
== END ==
LOC: ORWHC2ENDO 10:08
PROVIDERS: ATTEND Internal Medicine Gastroenterology
DX: K64.1 Second degree hemorrhoids (principal); I10 Essential (primary) hypertension; E78.5 Hyperlipidemia, unspecified; I25.110 Atherosclerotic heart disease of native coronary artery with unstable angina pectoris; E11.9 Type 2 diabetes mellitus without complications; Z79.84 Long term (current) use of oral hypoglycemic drugs; Z79.899 Other long term (current) drug therapy; Z90.49 Acquired absence of other specified parts of digestive tract; Z87.442 Personal history of urinary calculi
CPT/HCPCS: 45378; J2001; J2704